=== PATIENT | female | born 1965 | race Caucasian/White ===

== ENCOUNTER → 2017-04-11 | Day surgery (SDC) | payer BC | LOC: MSO 07:58 | DX: Z12.11 Encounter for screening for malignant neoplasm of colon (principal); I10 Essential (primary) hypertension; E11.8 Type 2 diabetes mellitus with unspecified complications; K57.30 Diverticulosis of large intestine without perforation or abscess without bleeding | CPT/HCPCS: 00810; J2550; J3490; J7030 ==

== ENCOUNTER 2020-11-20 13:55 | Emergency (ER) | payer BC ==
[2020-11-20] MEDS ORDERED: NORVASC 10MG10 MG PO (14:11)
[2020-11-20] MEDS ORDERED: DOXAZOSIN MESYLA4 M1 PO (14:11)
[2020-11-20] MEDS ORDERED: MELOXICAM7.5 MG PO (14:11)
[2020-11-20] MEDS ORDERED: MEDROL DOSEPAK4 MG PO (16:31)
[2020-11-20] MEDS ORDERED: CYCLOBENZAPRINE10 M1 PO (16:34)
[2020-11-20] MEDS ORDERED: NORCO 325 MG-51 TA1 PO (17:26)
[2020-11-20 17:51] VITALS: BP 136/74
== END 2020-11-20 17:45 | disposition home or self-care (01) ==
LOC: ED 13:55
DX: M54.42 Lumbago with sciatica, left side (principal); I10 Essential (primary) hypertension; Z90.710 Acquired absence of both cervix and uterus; Z88.1 Allergy status to other antibiotic agents; Z88.6 Allergy status to analgesic agent
CPT/HCPCS: J1100; J1885; J7030